=== PATIENT | male | born 1970 | race African-American/Black ===

== ENCOUNTER 2018-08-06 02:22 | Emergency (ER) | payer MEDICAID ==
[~2018-08-06] VITALS: Ht 182.9 cm; Wt 112.0 kg
[2018-08-06 05:01] VITALS: BP 119/67
== END 2018-08-06 05:18 | disposition home or self-care (01) ==
LOC: ER 02:22
DX: M25.511 Pain in right shoulder (principal); M25.561 Pain in right knee; F17.210 Nicotine dependence, cigarettes, uncomplicated; F12.90 Cannabis use, unspecified, uncomplicated; W01.0XXA Fall on same level from slipping, tripping and stumbling without subsequent striking against object, initial encounter; Y93.89 Activity, other specified; Y92.512 Supermarket, store or market as the place of occurrence of the external cause
CPT/HCPCS: 73030; 73562; 99284; A4565